=== PATIENT | female | born 2000 | race Caucasian/White ===

== ENCOUNTER 2022-04-14 21:13 | Emergency (ER) | payer BC ==
[2022-04-14 21:31] VITALS: BP 107/71; PULSE 82; RESP 18; TEMP 98.8
--- NOTE | 2022-04-14 21:53 | XR ---
EXAMINATION TYPE: XR ankle complete LT DATE OF EXAM: 04/14/2022 COMPARISON: NONE HISTORY: Pain TECHNIQUE: Single view FINDINGS: Ankle mortise is anatomic. I see no fracture nor dislocation. IMPRESSION: Normal left ankle exam. No fracture.
[2022-04-14] MEDS ORDERED: IBUPROFEN 400 MG TAB PO STA (22:56)
--- NOTE | 2022-04-14 23:04 | ED ---
Lower Extremity Injury HPI - General Chief Complaint: Extremity Injury, Lower Stated Complaint: LT ankle injury Time Seen by Provider: 04/14/22 22:48 Source: patient, family (mom), RN notes reviewed, old records reviewed Mode of arrival: wheelchair Limitations: no limitations - History of Present Illness Initial Comments: This is a well-appearing 21-year-old female that presents to the emergency room with her mom after tripping around 1930 today injuring her ankle. States has pain along the left side of her ankle. MD Complaint: ankle injury (left) -: hour(s) (3) Type of Injury: hyperextension Severity scale (1-10): 8 Improves With: nothing Worsens With: movement, palpation Context: other (tripped) Associated Symptoms: able to partially bear weight - Related Data Allergies Allergy/AdvReac Type Severity Reaction Status Date / Time No Known Allergies Allergy Verified 04/14/22 21:31 Review of Systems ROS Statement: Those systems with pertinent positive or pertinent negative responses have been documented in the HPI. ROS Other: All systems not noted in ROS Statement are negative. Past Medical History Past Medical History: No Reported History History of Any Multi-Drug Resistant Organisms: None Reported Past Surgical History: No Surgical Hx Reported Past Psychological History: No Psychological Hx Reported Smoking Status: Never smoker Past Alcohol Use History: None Reported Past Drug Use History: None Reported General Exam Limitations: no limitations General appearance: alert, in no apparent distress Head exam: Present: atraumatic Eye exam: Present: normal appearance. Absent: scleral icterus, conjunctival injection Neck exam: Present: full ROM. Absent: meningismus Respiratory exam: Absent: respiratory distress, accessory muscle use Cardiovascular Exam: Present: regular rate Left Ankle exam: Present: full ROM, tenderness, swelling (left lateral malleolus), abrasion (Anterior ankle) Foot/Toe exam: Present: normal inspection, full ROM, tenderness (Dorsum of foot) Neurovascular tendon exam: Present: no vascular compromise. Absent: abnormal cap refill, extremity cold to touch, pallor, foot drop Neurological exam: Present: alert, oriented X3 Psychiatric exam: Present: normal affect, normal mood Skin exam: Present: warm, dry, normal color. Absent: cyanosis, diaphoretic, pe techiae, pallor Course Vital Signs 04/14/22 21:30 Temperature 98.8 F Pulse Rate 82 Respiratory 18 Rate Blood Pressure 107/71 O2 Sat by Pulse 98 Oximetry Medical Decision Making - Medical Decision Making Patient presents with left ankle pain after tripping tonight. X-ray negative for fracture. Patient does have good range of motion. Swelling and tenderness to palpation to the left lateral malleolus. She was given Motrin and placed in ankle stirrup. Patient is able to ambulate 3 steps forward and 3 steps backward. Directed to take Tylenol and Motrin as needed for pain and swelling. Follow-Up with orthopedics or primary care doctor next week. Patient and mom are agreeable to this plan of care. Case discussed with Dr. Mack Disposition Clinical Impression: Ankle pain, left Disposition: HOME SELF-CARE Condition: Good Instructions (If sedation given, give patient instructions): Ankle Sprain (ED) Additional Instructions: Rest, ice, elevate and wear ankle stirrup. Tylenol and/or Motrin as needed for pain. Follow-up with orthopedics or your primary care doctor this week. Return to the emergency room with worsening or concerning symptoms including increased pain, swelling, numbness or tingling. Is patient prescribed a controlled substance at d/c from ED?: No Referrals: None,Stated [Primary Care Provider] - 1-2 days Odessa Esaclona DO [Doctor of Osteopathic Medicine] - 1-2 days Time of Disposition: 23:04
== END 2022-04-14 23:24 | disposition home or self-care (01) ==
LOC: EC 21:13
DX: M25.572 Pain in left ankle and joints of left foot (principal)
CPT/HCPCS: 99283

== ENCOUNTER 2024-08-30 19:38 | Emergency (ER) | payer BC ==
[2024-08-30 19:45] VITALS: RESP 16; TEMP 98
--- NOTE | 2024-08-30 20:25 | ED ---
Wound/Laceration HPI - General Source: patient Mode of arrival: ambulatory Limitations: no limitations <Naveen Summers - Last Filed: 08/30/24 20:33> <Nawaf Magallanes - Last Filed: 08/30/24 20:35> - General Chief Complaint: Wound/Laceration Stated Complaint: L Finger Laceration - History of Present Illness Initial Comments: Patient is a 23-year-old female with no past medical history presents to the ED with a laceration on her left index fingernail. Patient states that the cut happened earlier this afternoon when she was using a scallop cutter machine and she accidentally sliced her left index fingernail. No active bleeding. Patient reports full range of motion of the left index finger. Denies any swelling, erythema, discoloration. Patient is up-to-date with her tetanus shot. Patient denies fever, chills, chest pain, shortness of breath, nausea, vomiting, belly pain, diarrhea or constipation. (Melina,Naveen) - Related Data Allergies Allergy/AdvReac Type Severity Reaction Status Date / Time No Known Allergies Allergy Verified 08/30/24 19:45 Review of Systems ROS Other: All systems not noted in ROS Statement are negative. Constitutional: Denies: fever, chills ENT: Denies: ear pain, throat pain Respiratory: Denies: cough, dyspnea Cardiovascular: Denies: chest pain, palpitations Endocrine: Denies: fatigue Gastrointestinal: Denies: abdominal pain, nausea, vomiting Genitourinary: Denies: urgency, dysuria Musculoskeletal: Denies: back pain Skin: Denies: rash, lesions Neurological: Denies: headache <Naveen Summers - Last Filed: 08/30/24 20:33> ROS Other: All systems not noted in ROS Statement are negative. <Nawaf Magallanes - Last Filed: 08/30/24 20:35> ROS Statement: Those systems with pertinent positive or pertinent negative responses have been documented in the HPI. Past Medical History Past Medical History: No Reported History History of Any Multi-Drug Resistant Organisms: None Reported Past Surgical History: No Surgical Hx Reported Past Psychological History: No Psychological Hx Reported Smoking Status: Never smoker Past Alcohol Use History: None Reported Past Drug Use History: None Reported <Naveen Summers - Last Filed: 08/30/24 20:33> General Exam Limitations: no limitations <Naveen Summers - Last Filed: 08/30/24 20:33> - General Exam Comments Initial Comments: GENERAL: This is a 23-year-old in no apparent distress at the time of examination. Pleasant and cooperative. HEENT: Head is atraumatic, normocephalic. RESPIRATORY: Clear to auscultation bilaterally. No wheezing, rales, rhonchi, stridor, crackles. CARDIOVASCULAR: Regular rate and rhythm. No systolic or diastolic murmur. GASTROINTESTINAL: No distention noted. Abdomen soft and round. Normal active bowel sounds auscultated x 4 quadrants. No pain or tenderness noted upon palpation. INTEGUMENTARY: No cyanosis. No jaundice. No rashes noted. No cellulitis noted. EXTREMITIES: 2+ peripheral pulses. No evidence of peripheral edema. No calf tenderness noted. A 1 mm cut on fingernail of left index finger with no active bleeding. No swelling, erythema, discoloration. NEUROLOGIC: Cranial nerves II-XII intact. PSYCHIATRIC: Awake, alert, and oriented X 3. Appropriate affect. Intact judgement and insight. (Naveen Summers) Course Vital Signs 08/30/24 19:42 Temperature 98.0 F Pulse Rate 91 Respiratory 16 Rate Blood Pressure 111/77 O2 Sat by Pulse 95 Oximetry Medical Decision Making <Naveen Summers - Last Filed: 08/30/24 20:33> <Nawaf Magallanes - Last Filed: 08/30/24 20:35> - Medical Decision Making Was pt. sent in by a medical professional or institution (, PA, MARKETING STRATEGY MANAGER, urgent care, hospital, or alf...) When possible be specific @ -No Did you speak to anyone other than the patient for history (EMS, parent, family, police, friend...)? What history was obtained from this source @ -Spoke with patient's parent Did you review nursing and triage notes (agree or disagree)? Why? @ -I agree with nursing and triage notes. Were old charts reviewed (outside hosp., previous admission, EMS record, old EKG, old radiological studies, urgent care reports/EKG's, alf records)? Report findings @ -No old charts reviewed Differential Diagnosis? @ -Fingernail laceration EKG interpreted by me (3pts min.). @ -No EKG ordered X-rays interpreted by me (1pt min.). @ -No x-ray CT interpreted by me (1pt min.). @ -No CT scan U/S interpreted by me (1pt. min.). @ -No ultrasound What testing was considered but not performed or refused? (CT, X-rays, U/S, labs)? Why? @ -None What meds were considered but not given or refused? Why? @ -None Did you discuss the management of the patient with other professionals (professionals i.e. , PA, MARKETING STRATEGY MANAGER, lab, RT, psych nurse, medical social consultant, monitor car operator, teacher, community relations officer, community case manager)? Give summary @ -Discussed with attending physician Was smoking cessation discussed for >3mins.? @ -None Was critical care preformed (if so, how long)? @ -No Were there social determinants of health that impacted care today? How? (Homelessness, low income, unemployed, alcoholism, drug addiction, transport ation, low edu. Level, literacy, decrease access to med. care, custodial, rehab)? @ -No Was there de-escalation of care discussed even if they declined (Discuss DNR or withdrawal of care, Hospice)? DNR status @ -No What co-morbidities impacted this encounter? (DM, HTN, Smoking, COPD, CAD, Cancer, CVA, ARF, Chemo, Hep., AIDS, mental health diagnosis, sleep apnea, morbid obesity)? @ -No Was patient admitted / discharged? Hospital course, mention meds given and route, prescriptions, significant lab abnormalities, going to OR and other pertinent info. @ -Patient will be discharged back home. Recommended patient to use warm compress and apply Neosporin cream on the wound. Undiagnosed new problem with uncertain prognosis? @ -No Drug Therapy requiring intensive monitoring for toxicity (Heparin, Nitro, Insulin, Cardizem)? @ -No Were any procedures done? @ -No Diagnosis/symptom? @ -Fingernail laceration Acute, or Chronic, or Acute on Chronic? @ -Acute Uncomplicated (without systemic symptoms) or Complicated (systemic symptoms)? @ -Uncomplicated Side effects of treatment? @ -No side effects Exacerbation, Progression, or Severe Exacerbation? @ -No exacerbation Poses a threat to life or bodily function? How? (Chest pain, [place], [place], pneumonia, PE, COPD, DKA, ARF, appy, cholecystitis, CVA, Diverticulitis, Homicidal, Suicidal, threat to staff... and all critical care pts) @ -No (Naveen Summers) I personally saw the patient and performed the critical portion of the service. I discussed the patient care with the resident. I directed management, care planning and final disposition of the patient. This includes, but not limited to, review of all lab work, radiological studies, EKG's, consultations, vital signs, and nursing notes. EKG interpreted by me (3pts min.) @ [as above] X-Rays interpreted by me (1 pt min.) @ [none] CT interpreted by me ( 1pt min.) @ [none] U/S interpreted by me (1 pt min.) @ [none] Critical care time of [0] minutes excluding separately billable procedures was spent in conjunction with critical care activities provided by the Resident and Attending simultaneously. I was present during [no procedures] for all critical portions of the procedure and as immediately available to furnish service during the entire procedure. (Nawaf Magallanes) Disposition Is patient prescribed a controlled substance at d/c from ED?: No Time of Disposition: 20:30 <Naveen Summers - Last Filed: 08/30/24 20:33> <Nawaf Magallanes - Last Filed: 08/30/24 20:35> Clinical Impression: Fingernail injury Narrative: Patient will be discharged home. Does not require suturing at this time. Advised patient to use warm compress and apply Neosporin cream on the wound. (Naveen Summers) Disposition: HOME SELF-CARE Condition: Stable Instructions (If sedation given, give patient instructions): Nail Avulsion (ED) Referrals: Khalif Doyle Jr, [Primary Care Provider] - 1-2 days
[2024-08-30 20:48] VITALS: BP 107/72; PULSE 89
== END 2024-08-30 20:46 | disposition home or self-care (01) ==
LOC: EC 19:38
DX: S69.92XA Unspecified injury of left wrist, hand and finger(s), initial encounter (principal); X58.XXXA Exposure to other specified factors, initial encounter
CPT/HCPCS: 99282